=== PATIENT | female | born 1985 | race African-American/Black ===

== ENCOUNTER 2018-01-12 18:37 | Emergency (ER) | payer BC ==
[~2018-01-12] VITALS: Ht 162.6 cm; Wt 49.9 kg
--- NOTE | 2018-01-12 18:40 | ED.ADGEN ---
Past History Past Medical History: Bronchitis, STD, Other Adult General Chief Complaint Chief Complaint ".. I ve been short of breath and had a cough...for about 1 week now...".. " The last three days more short of breath..".."It sometimes hurts..."... " I was completely my daughter yesterday... And got so short of breath occurred continue to talk to her..." HPI HPI Patient is a 33 year old female who presents with above hx and complaints cough , dyspnea, wheezes. Pt. had recent car trip to [place] for . No specific ill contacts other than daughter who recently developed a cold. No history immunosuppression. Patient does use control. Patient normally follows with OB. No history of fevers. No history of trauma. Cough has been nonproductive. Dyspnea with activity. No hx DVT or PE. Pt pain seems to be related to deep cough and chest wall movement. Pt. reportedly does not smoke. Review of Systems Review of Systems Constitutional: Denies fever or chills [] Eyes: Denies change in visual acuity, redness, or eye pain [] HENT: Denies nasal congestion or sore throat [] Respiratory: History of cough or shortness of breath [] Cardiovascular: No additional information not addressed in HPI [] GI: Denies abdominal pain, nausea, vomiting, bloody stools or diarrhea [] : Denies dysuria or hematuria [] Musculoskeletal: Denies back pain or joint pain [] Integument: Denies rash or skin lesions [] Neurologic: Denies headache, focal weakness or sensory changes [] Endocrine: Denies polyuria or polydipsia [] All other systems were reviewed and found to be within normal limits, except as documented in this note. Family History Family History Noncontributory Current Medications Current Medications Current Medications Medications (Trade) Dose Ordered Sig/Arthur Start Time Stop Time Status Last Admin Dose Admin Albuterol Sulfate (Ventolin Hfa Inhaler) 2 puff 1X ONCE 01/12/18 19:00 01/12/18 19:01 DC 01/12/18 19:32 2 PUFF Azithromycin (Zithromax) 1,000 mg 1X ONCE 01/12/18 20:30 01/12/18 20:31 DC 01/12/18 20:27 1,000 MG Ceftriaxone Sodium 1 gm/ Sodium Chloride 50 ml @ 100 mls/hr 1X ONCE 01/12/18 20:15 01/12/18 20:44 UNV Ceftriaxone Sodium (Rocephin) 1 gm 1X ONCE 01/12/18 20:30 01/12/18 20:31 DC 01/12/18 20:31 1 GM Lactated Ringer's 1,000 ml @ 1,000 mls/hr Q1H 01/12/18 18:46 01/12/18 19:45 DC 01/12/18 19:28 1,000 MLS/HR Metronidazole (Flagyl) 2,000 mg 1X ONCE 01/12/18 20:30 01/12/18 20:31 DC 01/12/18 20:24 2,000 MG Ondansetron HCl (Zofran) 8 mg 1X ONCE 01/12/18 20:30 01/12/18 20:31 DC 01/12/18 20:29 8 MG Prednisone (Prednisone) 60 mg 1X ONCE 01/12/18 19:00 01/12/18 19:01 DC 01/12/18 19:31 60 MG See nursing for home meds Allergies Allergies Allergies Coded Allergies Type Severity Reaction Last Updated Verified No Known Drug Allergies 01/12/18 No Physical Exam Physical Exam Constitutional: Well developed, well nourished, no acute distress, non-toxic appearance. [] HENT: Normocephalic, atraumatic, bilateral external ears normal, oropharynx moist, no oral exudates, nose normal. [] Eyes: PERRLA, EOMI, conjunctiva normal, no discharge. [] Neck: Normal range of motion, no tenderness, supple, no stridor. [] Cardiovascular:Heart rate regular rhythm, no murmur [] Lungs & Thorax: Bilateral breath sounds equal with few scattered wheezes on auscultation [] Abdomen: Bowel sounds normal, soft, no tenderness, no masses, no pulsatile masses. [] Skin: Warm, dry, no erythema, no rash. [] Back: No tenderness, no CVA tenderness. [] Extremities: No tenderness, no cyanosis, no clubbing, ROM intact, no edema. [] No cording appreciated Neurologic: Alert and oriented X 3, normal motor function, normal sensory function, no focal deficits noted. [] Psychologic: Affect anxious, judgement normal, mood normal. [] Current Patient Data Vital Signs Vital Signs Date Time Temp Pulse Resp B/P (MAP) Pulse Ox O2 Delivery O2 Flow Rate FiO2 01/12/18 20:50 76 16 123/87 (99) 100 Room Air 01/12/18 18:45 97.9 Lab Results Laboratory Tests Test 01/12/18 18:10 01/12/18 18:53 01/12/18 19:10 POC Urine HCG, Qualitative hcg negative (Negative) Urine Collection Type Void Urine Color Yellow Urine Clarity Hazy Urine pH 6.0 Urine Specific [place] >=1.030 Urine Protein 30 mg/dl (NEG-TRACE) Urine Glucose (UA) Neg mg/dL (NEG) Urine Ketones (Stick) Neg mg/dL (NEG) Urine Blood Large (NEG) Urine Nitrite Neg (NEG) Urine Bilirubin Neg (NEG) Urine Urobilinogen Dipstick 1 mg/dL (0.2 mg/dL) Urine Leukocyte Esterase Neg (NEG) Urine RBC 6-10 /HPF (0-2) Urine WBC 1-4 /HPF (0-4) Urine Squamous Epithelial Cells Few /LPF Urine Bacteria Few /HPF (0-FEW) Urine Mucus Mod /LPF Urine Trichomonas Present Urine Opiates Screen Neg (NEG) Urine Methadone Screen Neg (NEG) Urine Barbiturates Neg (NEG) Urine Phencyclidine Screen Neg (NEG) Urine Amphetamine/Methamphetamine Neg (NEG) Urine Benzodiazepines Screen Neg (NEG) Urine Cocaine Screen Neg (NEG) Urine Cannabinoids Screen Neg (NEG) Urine Ethyl Alcohol Neg (NEG) White Blood Count 4.5 x10^3/uL (4.0-11.0) Red Blood Count 5.60 x10^6/uL (3.50-5.40) H Hemoglobin 11.0 g/dL (12.0-15.5) L Hematocrit 35.3 % (36.0-47.0) L Mean Corpuscular Volume 63 fL (79-100) L Mean Corpuscular Hemoglobin 20 pg (25-35) L Mean Corpuscular Hemoglobin Concent 31 g/dL (31-37) Red Cell Distribution Width 20.7 % (11.5-14.5) H Platelet Count 276 x10^3/uL (140-400) Neutrophils (%) (Auto) 36 % (31-73) Lymphocytes (%) (Auto) 54 % (24-48) H Monocytes (%) (Auto) 7 % (0-9) Eosinophils (%) (Auto) 0 % (0-3) Basophils (%) (Auto) 2 % (0-3) Neutrophils # (Auto) 1.6 x10^3uL (1.8-7.7) L Lymphocytes # (Auto) 2.4 x10^3/uL (1.0-4.8) Monocytes # (Auto) 0.3 x10^3/uL (0.0-1.1) Eosinophils # (Auto) 0.0 x10^3/uL (0.0-0.7) Basophils # (Auto) 0.1 x10^3/uL (0.0-0.2) Platelet Estimate Adequate (ADEQUATE) Large Platelets Occ Hypochromasia Marked Anisocytosis Mod Microcytosis Marked Target Cells Few Tear Drop Cells Occ Ovalocytes Occ Stomatocytes Occ Crenated Cell Present Schistocytes Occ Prothrombin Time 9.3 SEC (9.4-11.4) L Prothrombin Time INR 0.9 (0.9-1.1) PTT 26 SEC (23-33) D-Dimer (Ginger) 0.28 mg/L (0.00-0.50) Sodium Level 139 mmol/L (136-145) Potassium Level 3.4 mmol/L (3.5-5.1) L Chloride Level 104 mmol/L (98-107) Carbon Dioxide Level 26 mmol/L (21-32) Anion Gap 9 (6-14) Blood Urea Nitrogen 14 mg/dL (7-20) Creatinine 0.9 mg/dL (0.6-1.0) Estimated GFR (Cockcroft-Gault) 87.3 Glucose Level 86 mg/dL (70-99) Calcium Level 9.0 mg/dL (8.5-10.1) Magnesium Level 1.9 mg/dL (1.8-2.4) Total Bilirubin 0.2 mg/dL (0.2-1.0) Direct Bilirubin < 0.1 mg/dL (0.0-0.2) Aspartate Amino Transferase (AST) 27 U/L (15-37) Alanine Aminotransferase (ALT) 32 U/L (14-59) Alkaline Phosphatase 31 U/L (46-116) L Creatine Kinase 191 U/L (26-192) Creatine Kinase MB (Mass) 0.5 ng/mL (0.0-3.6) Creatine Kinase MB Relative Index 0.3 % (0-4) Troponin I Quantitative < 0.017 ng/mL (0-0.055) Total Protein 7.9 g/dL (6.4-8.2) Albumin 3.5 g/dL (3.4-5.0) EKG EKG My interpretation of EKG shows a sinus rhythm at 76 bpm. This was nonspecific contour changes anterior lateral leads. But no findings acute STEMI with contralateral changes.[] Radiology/Procedures Radiology/Procedures My interpretation of chest x-ray shows no acute cardiopulmonary findings.[] Course & Med Decision Making Course & Med Decision Making Pertinent Labs and Imaging studies reviewed. (See chart for details). Take Tylenol or ibuprofen for discomfort. Push fluids. And fruit juices. Benadryl 20/ 5/50 milligrams 4 times a day may be helpful. Use MDI 2 puffs 4 times a day. Take. Some 50 mg a day for 5 days. Take Keflex 500 three time a day. Follow up cultures. Safe sex. Sexual partners also need to be treated. [] Final Impression Final Impression 1. Dyspnea 2. Cough[] 3. Bronchitis 4. Chest wall pain 5. Trichomonas Dragon Disclaimer Dragon Disclaimer This electronic medical record was generated, in whole or in part, using a voice recognition dictation system. LARS MUNGUIA MD Jan 12, 2018 18:40
[2018-01-12] MEDS ORDERED: IV RINGERS SOLUTION,LACTATED 1,000 ML IV SCH (18:46)
[2018-01-12] MEDS ORDERED: ALBUTEROL SULFATE 8GM INHALER. INH ONE (19:00)
[2018-01-12] MEDS ORDERED: predniSONE 10 MG TABLET PO ONE (19:00)
--- NOTE | 2018-01-12 19:02 | EKG ---
[address] [address] Test Date: 2018-01-12 Test Time: 18:57:29 Pat Name: NA HINDS Department: Room: Gender: F [employer]ting [employer] Operator: : [id number] Requested By: LARS MUNGUIA Order Number: [id number] Reading MD: Cornelius Youngblood MD Measurements Intervals [place] Rate: 76 P: 69 MN: 148 QRS: 50 QRSD: 84 T: 22 QT: 384 QTc: 431 Interpretive Statements SINUS RHYTHM Electronically Signed On 01-15-2018 12:47:09 CDT by Cornelius Youngblood MD
[2018-01-12 19:09] LABS: BILIRUBIN,URINE NEG (NEG); CLARITY,URINE HAZY; COLOR,URINE YELLOW; GLUCOSE,URINE NEG (NEG)
[2018-01-12 19:10] LABS: NITRITE,URINE NEG (NEG); UROBILINOGEN,URINE 1 mg/dL (0.2 mg/dL)
[2018-01-12 19:16] LABS: BARBITURATES NEG (NEG); BENZODIAZEPINES NEG (NEG); CANNABINOIDS NEG (NEG); COCAINE NEG (NEG); METHADONE NEG (NEG); OPIATES NEG (NEG); PHENCYCLIDINE NEG (NEG)
[2018-01-12 19:17] LABS: AMPHETAMINE/METHAMPHETAMINE NEG (NEG)
[2018-01-12 19:29] LABS: BACTERIA,URINE FEW /HPF (0-FEW); SQUAMOUS EPITHELIAL CELL,UR FEW /LPF; TRICHOMONAS,URINE PRESENT
[2018-01-12 19:55] LABS: BASO # 0.1 x10^3/uL (0.0-0.2); BASO % 2 % (0-3); EOS % 0 % (0-3); HEMATOCRIT 35.3 % (36.0-47.0); LYMPH # 2.4 x10^3/uL (1.0-4.8); LYMPH % 54 % (24-48); MEAN CORPUSCULAR HEMOGLOBIN 20 pg (25-35); MEAN CORPUSCULAR HGB CONC 31 g/dL (31-37); MEAN CORPUSCULAR VOLUME 63 fL (79-100); MONO # 0.3 x10^3/uL (0.0-1.1); MONO % 7 % (0-9); NEUT # 1.6 x10^3uL (1.8-7.7); NEUT % 36 % (31-73); PLATELET COUNT 276 x10^3/uL (140-400); RED CELL DISTRIBUTION WIDTH 20.7 % (11.5-14.5); WHITE BLOOD COUNT 4.5 x10^3/uL (4.0-11.0)
[2018-01-12] MEDS ORDERED: CEPH-264 PO (20:13)
[2018-01-12] MEDS ORDERED: PRED50TA PO (20:15)
[2018-01-12 20:18] LABS: ALBUMIN 3.5 g/dL (3.4-5.0); ALK PHOS 31 U/L (46-116); ALT (SGPT) 32 U/L (14-59); ANION GAP 9 (6-14); AST (SGOT) 27 U/L (15-37); BLOOD UREA NITROGEN 14 mg/dL (7-20); CARBON DIOXIDE 26 mmol/L (21-32); CHLORIDE 104 mmol/L (98-107); CREATININE 0.9 mg/dL (0.6-1.0); DIRECT BILIRUBIN < 0.1 mg/dL (0.0-0.2); GFR 87.3; GLUCOSE 86 mg/dL (70-99); MAGNESIUM 1.9 mg/dL (1.8-2.4); POTASSIUM 3.4 mmol/L (3.5-5.1); SODIUM 139 mmol/L (136-145); TOTAL BILIRUBIN 0.2 mg/dL (0.2-1.0); TOTAL PROTEIN 7.9 g/dL (6.4-8.2)
[2018-01-12] MEDS ORDERED: AZITHROMYCIN 250 MG TABLET. PO ONE (20:30)
[2018-01-12] MEDS ORDERED: ONDANSETRON PF 4 MG/2 ML VIAL. IV ONE (20:30)
[2018-01-12] MEDS ORDERED: cefTRIAXone IV Push 1 GM VIAL. IVP ONE (20:30)
[2018-01-12] MEDS ORDERED: metroNIDAZOLE 500 MG TABLET PO ONE (20:30)
[2018-01-12 20:42] LABS: HYPOCHROMIA MARKED; MICROCYTOSIS MARKED; PLT ESTIMATE ADEQUATE (ADEQUATE)
[2018-01-12 20:43] LABS: ANISOCYTOSIS MOD; OVALOCYTES OCC; TARGET CELLS FEW; TEAR DROP CELLS OCC
[2018-01-12 20:44] LABS: SCHISTOCYTES OCC; STOMATOCYTES OCC
[2018-01-12 20:50] VITALS: BP 123/87
--- NOTE | 2018-01-12 23:36 | RAD ---
PROCEDURE: CHEST PA LATERAL CLINICAL INDICATION: Dyspnea ,cough COMPARISON: None FINDINGS: No pneumothorax identified. Cardiac and mediastinal contours unremarkable. No pulmonary consolidation or acute airspace disease. No acute osseous abnormalities identified. IMPRESSION: No pulmonary consolidation or acute airspace disease. Electronically signed by: Thomas Tavares DO (01/12/2018 11:32 PM) [facility]
== END 2018-01-12 20:59 | disposition home or self-care (01) ==
LOC: ER 18:37
DX: J40 Bronchitis, not specified as acute or chronic (principal); R07.89 Other chest pain; A59.9 Trichomoniasis, unspecified
CPT/HCPCS: 36415; 71046; 80048; 80076; 80307; 81001; 81025; 82553; 83735; 84484; 85025; 85379; 85610; 85730; 87491; 87591; 93005; 94640; 96374; 96375; 99285; J0456; J0696; J2405; J7120; J7512; J7613; G0479